=== PATIENT | female | born 1990 | race Caucasian/White ===

== ENCOUNTER 2019-03-11 17:08 | Observation (INO) | payer OTHER ==
[~2019-03-11] VITALS: Ht 167.6 cm; Wt 90.7 kg
[2019-03-11 17:53] LABS: BASOPHILS ABSOLUTE AUTO 0.02 K/mm3 (0.00-0.23); BASOPHILS PERCENT AUTO 0 % (0-2); EOSINOPHILS ABSOLUTE AUTO 0.12 K/mm3 (0.00-0.68); EOSINOPHILS PERCENT AUTO 1 % (0-6); Hematocrit 37.4 % (33.0-51.0); Hemoglobin 12.2 g/dL (11.5-16.0); IMMATURE GRAN ABSOLUTE AUTO 0.02 K/mm3 (0.00-0.10); IMMATURE GRAN PERCENT AUTO 0 % (0-1); LYMPHOCYTES ABSOLUTE AUTO 2.32 K/mm3 (0.84-5.20); LYMPHOCYTES PERCENT AUTO 24 % (21-46); MONOCYTES ABSOLUTE AUTO 0.86 K/mm3 (0.16-1.47); MONOCYTES PERCENT AUTO 9 % (4-13); Mean Corpuscular HGB 28.1 pg (26.0-34.0); Mean Corpuscular HGB Conc 32.6 g/dL (31.5-36.5); Mean Corpuscular Volume 86 fL (80-100); Mean Platelet Volume 11.9 fL (9.1-12.4); NEUTROPHILS PERCENT AUTO 66 % (41-73); Platelet Count 203 K/mm3 (150-400); RDW Standard Deviation 44.1 fL (35.1-46.3); Red Blood Cell Count 4.34 M/mm3 (3.80-5.20); White Blood Cell Count 9.74 K/mm3 (4.00-11.30)
[2019-03-11 18:17] LABS: Alanine Aminotransfer (ALT/SGP 16 U/L (12-78); Albumin, Blood 3.4 g/dL (3.4-5.0); Albumin/Globulin Ratio 0.9 (0.8-1.8); Alk Phos 88 U/L (50-136); Anion Gap 8 mmol/L (6-16); Aspartate Aminotrans (AST/SGOT 8 U/L (12-37); Bilirubin, Total 0.2 mg/dL (0.1-1.0); Blood Urea Nitrogen 5 mg/dL (8-24); Bun/Creatinine Ratio 9.7 (12.0-20.0); CO2, Blood 23 mmol/L (21-32); Calcium, Blood 8.8 mg/dL (8.5-10.1); Chloride, Blood 107 mmol/L (98-108); Creatinine, Blood 0.51 mg/dL (0.40-1.00); Globulin, Blood 3.9 g/dL (2.2-4.0); Glomerular Filtration Rate >60 (60-); Glucose, Blood 82 mg/dL (70-99); Potassium, Blood 3.4 mmol/L (3.5-5.5); Sodium, Blood 138 mmol/L (136-145); Total Protein, Blood 7.3 g/dL (6.4-8.2)
[2019-03-11 18:30] LABS: Source, Urine Clean Catch
[2019-03-11 18:34] LABS: Beta HCG, Quantitative, Serum 24710 mIU/mL (0-3)
[2019-03-11 18:35] LABS: Bilirubin, Urine Neg (Neg); Blood, Urine Neg (Neg); Glucose Qualitative, Urine Neg (Neg); Ketones, Urine Neg (Neg); Leukocyte Esterase, Urine Neg (Neg); Nitrite, Urine Neg (Neg); Protein, Urine Neg (Neg); Specific Gravity, Urine 1.015 (1.003-1.022); Urobilinogen, Urine NORM (Normal)
[2019-03-11 18:50] LABS: Appearance, Urine Clear (Clear); Color, Urine Yellow (P-Yellow)
--- NOTE | 2019-03-11 22:45 | NUR ---
03-11-192029 pt here with c/o mid back pain. denies that she has had any bleeding or cramping or leaking of fluid and denies UTI symptoms. Pt states that she had this pain for a few days and it may be muscle pain from picking up her other child who is 3, but she is no sure. Pt states her pain is 7/10 when she is laying flat on her back, yet it is somewhat relieved when she lays on her side. Denies tenderness of abd or back with palpation
--- NOTE | 2019-03-11 22:49 | NUR ---
03-11-19 2200 given kpad for back disconfort and order recieved from [facility] for Flexeril or Percocet for pain. Pt requests to have SL removed if it will not be needed because it is very tender in her hand
--- NOTE | 2019-03-12 07:09 | NUR ---
03-12-19 0600 pt remains asleep
--- NOTE | 2019-03-12 08:30 | NUR ---
Pt sleeping soundly. Did not wake when RN entered room.
[2019-03-12] MEDS ORDERED: CYCL10 PO (09:14)
--- NOTE | 2019-03-12 10:25 | NUR ---
Printed d/c instructions regarding ptl and bleeding reveiwed w/pt. Verbalized understanding of when to call and when to return to offices. Denied other questions or concerns. Pt d/c'd home ambulatory to care of SO.
== END 2019-03-12 10:25 | disposition home or self-care (01) ==
LOC: ER 17:08 → BC 19:04
PROVIDERS: Physician Assistant; ADMIT Nurse Practitioner Obstetrics & Gynecology
DX: O26.852 Spotting complicating pregnancy, second trimester (principal); Z3A.18 18 weeks gestation of pregnancy
CPT/HCPCS: 76816; 80053; 81003; 84702; 85025; 86900; 86901; 99285-25; G0378